=== PATIENT | male | born 1960 | race Caucasian/White ===

== ENCOUNTER 2023-07-20 16:53 | Inpatient (IN) | payer OTHER, SELFPAY ==
[2023-07-20 17:59] LABS: Absolute Lymphocytes (CBC) 1.1 K/uL (0.7-4.9); Hematocrit 40.2 % (39.6-49.0); Lymphocytes % 9.4 % (15.3-44.8); MCV 84.9 fL (80-100); MPV 6.9 fL (7.6-11.3); Platelets 328 thou/uL (152-406); RBC Red Blood Cell Count 4.73 M/uL (4.33-5.43)
[2023-07-20 18:02] LABS: Protime INR 1.24
[2023-07-20 18:09] LABS: Albumin 2.5 g/dL (3.4-5.0); Bilirubin Total 0.5 mg/dL (0.2-1.0); Protein, Total 7.7 g/dL (6.4-8.2)
--- NOTE | 2023-07-20 18:26 | RAD REPORT ---
EXAM DESCRIPTION: RAD - Foot Right 3 View - 07/20/2023 5:42 pm CLINICAL HISTORY: Swelling;Pain COMPARISON: No comparisons TECHNIQUE: Right foot, 3 views. FINDINGS: Osseous destructive changes and lucency along the base of the second digit proximal phalan x, with adjacent soft tissue swelling and gas. Similar although subtle osseous lucencies involve the head of the second metatarsal as well. Lateral subluxation of the base of the proximal phalanx relati ve to the head of the second metatarsal. Dislocation or periosteal reaction. Moderate degenerative changes along the mid and hindfoot. Moderate calcaneal spur. No air or foreign body in the soft tissues. IMPRESSION: Osseous destructive changes involving the base of the second digit proximal phalanx and head of the second metatarsal, with lateral subluxation, concerning for osteomyelitis.
--- NOTE | 2023-07-20 18:38 | ER ---
Nurse's Notes [facility] Name: Horace Coates Age: 62 yrs Sex: Male : 1960 Arrival Date: 07/20/2023 Time: 16:53 Bed 17 Private MD: Beena Woods Diagnosis: Osteomyelitis, unspecified;Cellulitis of right lower limb Presentation: 07/20 17:05 Chief complaint: Patient states: Infection to R foot for at least a month. Wound isn't ll1 healing after antibiotics. Slight brown drainage. No fever. Coronavirus screen: Client denies travel out of the [place] in the last 14 days. At this time, the client does not indicate any symptoms associated with coronavirus-19. Ebola Screen: Patient denies travel to an Ebola-affected area in the 21 days before illness onset. Initial Sepsis Screen: Does the patient meet any 2 criteria? No. Patient's initial sepsis screen is negative. Does the patient have a suspected source of infection? Yes: Skin breakdown/wound. Risk Assessment: Do you want to hurt yourself or someone else? Patient reports no desire to harm self or others. Onset of symptoms was June 19, 2023. 17:05 Method Of Arrival: Ambulatory ll1 17:05 Acuity: SERGIO 2 ll1 Historical: - Allergies: 17:04 pine nuts; ll1 - PMHx: 17:04 Hypertensive disorder; Diabetes mellitus; neuropathy; ll1 - PSHx: 17:04 knee SX; foot SX; ll1 - Immunization history:: Adult Immunizations up to date. - Social history:: Smoking status: Patient reports the use of cigarette tobacco products, smokes one pack cigarettes per day. - Family history:: not pertinent. - Hospitalizations: : No recent hospitalization is reported. Screenin:48 [facility] ED Fall Risk Assessment (Adult) History of falling in the last 3 months, mb9 including since admission Yes- single mechanical fall (1 pt) Confusion or Disorientation No (0 pts) Intoxicated or Sedated No (0 pts) Impaired Gait Yes (1 pt) Mobility Assist Device Used No (0 pt) Altered Elimination No (0 pt) Score/Fall Risk Level 0 - 2 = Low Risk Oriented to surroundings, Maintained a safe environment, Educated pt \T\ family on fall prevention, incl call for assistance when getting out of bed. Abuse screen: Denies threats or abuse. Nutritional screening: No deficits noted. Tuberculosis screening: No symptoms or risk factors identified. Assessment: 17:51 General: Appears in no apparent distress. Behavior is calm, cooperative. Pain: Denies mb9 pain. Neuro: Andujar Agitation-Sedation Scale (RASS): 0 - Alert and Calm Level of Consciousness is awake, alert, obeys commands, Oriented to person, place, time, situation, Appropriate for age. Cardiovascular: Heart tones S1 S2 present Patient's skin is warm and dry. Respiratory: Airway is patent Respiratory effort is even, unlabored, Respiratory pattern is regular, symmetrical, Breath sounds are clear bilaterally. GI: Abdomen is round non-distended, Bowel sounds present X 4 quads. Abd is soft and non tender X 4 quads. : No signs and/or symptoms were reported regarding the genitourinary system. EENT: No signs and/or symptoms were reported regarding the EENT system. Derm: Wound noted right heel Wound is erythema and purulent drainage noted. Musculoskeletal: Range of motion: intact in all extremities. 19:00 General: Appears in no apparent distress. comfortable, Behavior is calm, cooperative. jw7 19:00 Pain: Denies pain. Neuro: Andujar Agitation-Sedation Scale (RASS): 0 - Alert and Calm jw7 Level of Consciousness is awake, alert, obeys commands, Oriented to person, place, time, situation. Cardiovascular: Heart tones S1 S2 present Capillary refill < 3 seconds Patient's skin is warm and dry. Respiratory: Airway is patent Trachea midline Respiratory effort is even, unlabored, Respiratory pattern is regular, symmetrical. GI: Abdomen is round non-distended, Bowel sounds present X 4 quads. Abd is soft and non tender X 4 quads. : No deficits noted. No signs and/or symptoms were reported regarding the genitourinary system. EENT: No deficits noted. No signs and/or symptoms were reported regarding the EENT system. Derm: Skin is healthy with good turgor, Skin is dry, Skin is normal, Skin temperature is warm Wound noted right foot Wound is erythema with purulent drainage. Musculoskeletal: Circulation, motion, and sensation intact. Range of motion: intact in all extremities. 20:00 Reassessment: Patient appears in no apparent distress at this time. No changes from jw7 previously documented assessment. Patient and/or family updated on plan of care and expected duration. Pain level reassessed. Patient is alert, oriented x 3, equal unlabored respirations, skin warm/dry/pink. 21:00 Reassessment: Patient appears in no apparent distress at this time. No changes from jw7 previously documented assessment. Patient and/or family updated on plan of care and expected duration. Pain level reassessed. Patient is alert, oriented x 3, equal unlabored respirations, skin warm/dry/pink. 22:00 Reassessment: Patient appears in no apparent distress at this time. No changes from jw7 previously documented assessment. Patient and/or family updated on plan of care and expected duration. Pain level reassessed. Patient is alert, oriented x 3, equal unlabored respirations, skin warm/dry/pink. 23:00 Reassessment: Patient appears in no apparent distress at this time. No changes from jw7 previously documented assessment. Patient and/or family updated on plan of care and expected duration. Pain level reassessed. Patient is alert, oriented x 3, equal unlabored respirations, skin warm/dry/pink. Vital Signs: 17:05 BP 140 / 96; Pulse 121; Resp 17; Temp 98.6; Pulse Ox 96% ; Weight 97.07 kg; Height 5 ll1 ft. 7 in. ; Pain 7/10; 17:52 BP 132 / 75; Pulse 113; Resp 14; Pulse Ox 97% on R/A; mb9 19:07 BP 136 / 86; Pulse 104; Resp 18; Pulse Ox 100% on R/A; mb9 19:30 BP 140 / 81; Pulse 107; Resp 20 S; Pulse Ox 98% on R/A; jw7 20:30 BP 135 / 84; Pulse 103; Resp 25 S; Pulse Ox 97% on R/A; jw7 22:00 BP 127 / 87; Pulse 97; Resp 27 S; Pulse Ox 98% on R/A; jw7 23:30 BP 142 / 89; Pulse 96; Resp 26 S; Pulse Ox 97% on R/A; jw7 17:05 Body Mass Index 33.52 (97.07 kg, 170.18 cm) ll1 17:05 Pain Scale: Adult ll1 ED Course: 16:55 Patient arrived in ED. rg4 16:56 Beena Woods DO is Private Physician. rg4 16:56 Quique Aguilar MD is Attending Physician. rn 17:07 Triage completed. ll1 17:07 Arm band placed on Patient placed in an exam room, on a stretcher. ll1 17:21 Freya Diallo, RN is Primary Nurse. mb9 17:44 XRAY Foot RIGHT 3 View In Process Unspecified. EDMS 17:47 No provider procedures requiring assistance completed. Inserted saline lock: 20 gauge mb9 in right antecubital area, using aseptic technique. 17:48 Placed in gown. Bed in low position. Call light in reach. Side rails up X 1. Client mb9 placed on continuous cardiac and pulse oximetry monitoring. NIBP monitoring applied. monitoring tech on. 17:48 EKG done, by ED staff, reviewed by Quique Aguilar MD. mb9 17:53 Blood Culture Adult (2) Sent. mb9 17:53 CBC with Diff Sent. mb9 17:53 CMP Sent. mb9 17:53 Protime (+inr) Sent. mb9 17:53 Ptt, Activated Sent. mb9 18:37 Oscar Esteban MD is Hospitalizing Provider. rn 18:38 Wound Culture Sent. mb9 19:08 Report given to KRISTOPHER Peña. mb9 07/21 00:11 Provided Education on: need for admit. jw7 00:11 Patient admitted, IV remains in place. jw7 Administered Medications: 07/20 19:06 Drug: Piperacillin-Tazobactam IVPB 3.375 grams IVPB once over 60 mins; (mix in NS 100 mb9 mL) Route: IVPB; Infused Over: 60 mins; Site: right antecubital; 07/21 00:19 Follow up: Response: No adverse reaction; IV Status: Completed infusion; IV Intake: jw7 100ml 07/20 20:10 Drug: vancoMYCIN IVPB 1 grams IVPB once over 2 hrs Route: IVPB; Infused Over: 2 hrs; jw7 Site: right antecubital; 07/21 00:19 Follow up: Response: No adverse reaction; IV Status: Completed infusion; IV Intake: jw7 250ml Medication: 07/20 17:48 VIS not applicable for this client. mb9 Intake: 07/21 00:19 IV: 100ml; Total: 100ml. jw7 00:19 IV: 250ml; Total: 350ml. jw7 Outcome: 07/20 18:38 Decision to Hospitalize by Provider. rn 07/21 00:11 Admitted to Med/surg accompanied by tech, via wheelchair, room 204, jw7 Condition: stable Instructed on the need for admit, Demonstrated understanding of instructions, 01:03 Patient left the ED. jw7 Signatures: Dispatcher [employer] EDMS Quique Aguilar MD MD rn Garcia, Rubi rg4 Rafa Brody RN RN 1 Mariana Cuba RN RN jw7 Freya Diallo RN RN mb9 Corrections: (The following items were deleted from the chart) 07/20 17:05 17:04 PMHx: Headache; ll1 ll1 17:59 17:52 Pulse 113bpm; Resp 14bpm; Pulse Ox 97% RA; mb9 mb9
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
[2023-07-20] MEDS ORDERED: NA CHLORIDE 0.9% 100 ML ONE (18:40)
[2023-07-20] MEDS ORDERED: NA CHLORIDE 0.9% 250 ML ONE ×2 (18:40→22:14)
[2023-07-20] MEDS ORDERED: VANCOMYCIN 1 GM/VIAL ONE ×2 (18:40→22:13)
[2023-07-20] MEDS ORDERED: PIPERACIL/TAZO 3.375 GM VIAL IV ONE (18:41)
[2023-07-20] MEDS ORDERED: ONDANSETRON 4 MG/2 ML VIAL IV PRN (19:51)
[2023-07-20] MEDS ORDERED: MORPHINE 4 MG/ML SYR IV PRN (19:51)
[2023-07-20] MEDS ORDERED: GLUCAGON 1 MG/VIAL IM PRN (19:54)
[2023-07-20] MEDS ORDERED: D50W 25 GM/50 ML SYRINGE IV PRN (19:54)
[2023-07-20] MEDS ORDERED: VANCOMYCIN 1 GM in NA CHLORIDE 0.9% 250 ML IVPB SCH (20:00)
[2023-07-20] MEDS ORDERED: D10W 125 ML IV PRN (20:27)
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
[2023-07-20] MEDS ORDERED: NACHLORIDE 0.45% 1,000 ML IV SCH (22:00)
[2023-07-20] MEDS ORDERED: INSULIN REGULAR (HUMAN) 100 UNIT/ML ONE (22:13)
[2023-07-20] MEDS ORDERED: METFORMIN HCL 500 MG TAB ONE (22:13)
[2023-07-20] MEDS: INSULIN REGULAR (HUMAN) 100 UNIT/ML SQ SCH (22:20)
[2023-07-20] MEDS: VANCOMYCIN 750 MG in NA CHLORIDE 0.9% 150 ML IVPB ONE (22:37)
[2023-07-20] MEDS: METFORMIN HCL 500 MG TAB PO SCH (22:38)
[2023-07-20] MEDS: NA CHLORIDE 0.9% 1,000 ML IV SCH (23:50)
[2023-07-21] MEDS: PIPER TAZO 4.5 GM in NA CHLORIDE 0.9% 100 ML IV SCH (01:00)
[2023-07-21 02:29] VITALS: BMI 33.9
[2023-07-21 06:43] LABS: Hematocrit 38.3 % (39.6-49.0); Lymphocytes % 11.5 % (15.3-44.8); MCV 84.6 fL (80-100); MPV 6.7 fL (7.6-11.3); Platelets 305 thou/uL (152-406); RBC Red Blood Cell Count 4.53 M/uL (4.33-5.43)
[2023-07-21 06:57] LABS: Potassium 3.6 mEq/L (3.5-5.1)
[2023-07-21] MEDS: ENOXAPARIN 40 MG/0.4 ML SQ SCH (08:21)
[2023-07-21] MEDS: VANCOMYCIN 1.75 GM in NA CHLORIDE 0.9% 500 ML IVPB SCH (12:33)
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
[2023-07-21] MEDS ORDERED: VANCOMYCIN 1.75 GM in NA CHLORIDE 0.9% 500 ML IVPB SCH (16:00)
[2023-07-21] MEDS: INSULIN GLARGINE 100 UNIT/ML SQ SCH (16:30)
[2023-07-21] MEDS: NICOTINE 21 MG/PAT TD SCH (17:19)
[2023-07-22 07:00] LABS: Hematocrit 38.1 % (39.6-49.0); Lymphocytes % 12.3 % (15.3-44.8); MCV 85.1 fL (80-100); MPV 6.4 fL (7.6-11.3); Platelets 324 thou/uL (152-406); RBC Red Blood Cell Count 4.48 M/uL (4.33-5.43)
[2023-07-22 07:20] LABS: Potassium 3.8 mEq/L (3.5-5.1)
[2023-07-22] MEDS: NA CHLORIDE 0.9% 1,000 ML ONE (14:54)
[2023-07-22] MEDS: SUCCINYLCHOLINE 20 MG/ML (10 ML) IV ONE (14:55)
[2023-07-22] MEDS ORDERED: propofoL 200 MG/20 ML VIAL IV ONE (14:58)
[2023-07-22] MEDS ORDERED: MIDAZOLAM HCL 2 MG/2 ML INJ ONE (14:58)
[2023-07-22] MEDS ORDERED: FENTANYL CITR 100 MCG/2 ML ONE (14:58)
--- NOTE | 2023-07-22 15:00 | P.PN ---
Date of Service: 07/22/23 S: Patient has had time an opportunity to think about his options. Has elected to have surgery. We discussed once again surgical options. O: Dressing was not taken down A: This patient has osteo myelitis of the second metatarsal joint of his right foot. There is a penetrating ulcer coming from the sole all the way down to the actual bone itself and it appears all to be fractures and disruption of the joint capsule itself with air in the tissue. P: I have discussed at length with the patient the risks of surgery, the potenti al of trying to heal this with antibiotics and just localized wound care. First of all the bone will most likely have to be removed. The likelihood of any healing spontaneously are low or if it does heal with quick recurrence. He understands and has decided for amputation of the second toe. I will taken the operating room to explore this area of his toe while he is asleep. We will check for infection, tissue viability, possible closures. And will decide accordingly. He does understands, but anxious patient's having an amputation of his toe. He understands all this and wants to proceed. The possibility also of this nonhealing were explained the need for further surgeries were discussed. He also lives by himself, and has limited resources.
--- NOTE | 2023-07-22 16:46 | P.OP ---
Preoperative diagnosis: Osteomyelitis of the right foot with gangrene of the second toe Postoperative diagnosis: The same Primary procedure: Exploration of chronic diabetic wound of the right foot Secondary procedure: Amputation of the second toe Other procedure(s): Transection of the second metatarsal and wound approximation Anesthesia: General Estimated blood loss: Since NCC Specimen: Toe necrotic necrotic debris send Operative Technique: Patient brought the operating room placed supine on the table. After induction of adequate general anesthesia, the right foot was then prepped with a Betadine solution, draped in the usual aseptic manner. The wound was carefully inspected. We could see that there was radha pus coming out of the wound on the sole of the foot. This is located approximately fingers breath from the toe crease line. This wound after aspirating at all. Material actually communicates with the dorsum of the foot. This after making a skin incision to widen and to join these 2 areas showed that there was chronic necrotic granulation tissue as well as well callused skin in this area. At the depth of this wound can feel the crunchiness of the metatarsal phalangeal joint. There is wound after having done a standard racquet incision around the second toe, revealed the head of the metatarsal. This tissue actually looks good, and after removing the head of the metatarsal, we turned our attention back to the wound base itself. There was a lot of necrotic gangrenous tissue in this area in addition to purulent material and chronic granulation tissue. This was sharply debrided with a cutting blade and electrocautery. Having obtained a dry wound bed we were able to approximate loosely the skin of the sole of the foot using 2 mattress stitches with red rubber catheter to protect the skin edges. The wound on the dorsum was inspected there is a somewhat of a tissue gap at the skin level however the underlying tissue came together well. This area was packed over with iodoform gauze. Sterile dressings were then applied and he was placed into an orthopedic boot appliance. At the end of the procedure he was in a stable condition was sent to the recovery room. Transferred to: Recovery Room Condition: Good
[2023-07-22] MEDS: VANCOMYCIN 1.75 GM in NA CHLORIDE 0.9% 500 ML IVPB SCH (17:58)
[2023-07-22] MEDS: Oxycodone HCl/Acetaminophen 5/325 MG TAB PO PRN (18:04)
[2023-07-23 06:42] LABS: Absolute Lymphocytes (CBC) 1.3 K/uL (0.7-4.9); Lymphocytes % 15.2 % (15.3-44.8); MCV 85.4 fL (80-100); MPV 6.5 fL (7.6-11.3); Platelets 348 thou/uL (152-406); RBC Red Blood Cell Count 4.22 M/uL (4.33-5.43)
[2023-07-23 07:00] LABS: Potassium 4.5 mEq/L (3.5-5.1)
--- NOTE | 2023-07-23 07:40 | P.PN ---
Subjective Date of Service: 07/23/23 Chief Complaint: Necrotic right foot infection/s/p right second toe amputation Subjective: No C/O voiced, Tolerating diet, Doing well Review of Systems 10-point ROS is otherwise unremarkable General: Unremarkable Eyes: Unremarkable ENT: Unremarkable Respiratory: Unremarkable Cardiovascular: Unremarkable Gastrointestinal: Unremarkable Genitourinary: Other (post OR voiding this am without difficulty) Musculoskeletal: As per HPI Integumentary: Unremarkable Neurological: Unremarkable Lymphatics: Unremarkable Physical Examination - Vital Signs Temperature: 97.8 F Blood Pressure: 120/76 Pulse: 82 Respirations: 16 Pulse Ox (%): 98 - Physical Exam General: Alert, In no apparent distress, Oriented x3 HEENT: Atraumatic, Normocephalic, PERRLA Neck: Supple Respiratory: Clear to auscultation bilaterally, Normal air movement Cardiovascular: No edema, Normal pulses, Regular rate/rhythm Capillary refill: <2 Seconds Gastrointestinal: Normal bowel sounds, Soft and benign Musculoskeletal: Other (post op dressing to right foot, + amputation of 2nd toe) Neurological: Normal speech, Normal tone Lymphatics: No axilla or inguinal lymphadenopathy Urinary: Other (voiding) External genitalia: Deferred Rectal: Deferred - Studies Microbiology Data (last 24 hrs): 07/20/23 18:33 Wound - Right Foot Gram Stain - Final Assessment And Plan - Plan Reason for admission: Necrotic right foot infection History of Present Illness: Patient is 62 years of age he has severe peripheral neuropathy from diabetes apparently he burned his right foot for months ago he has been having some treatment is pain got worse on the right for developed more swelling redness he does have a hole in his ball of his feet he is seeing his primary care as an outpatient was treated with antibiotic Allergies pine nuts Allergy (Uncoded 02/08/15 15:12) Unknown - Past Medical/Surgical History -: Diabetes -: Peripheral neuropathy - Social History Smoking Status: Current every day smoker Counseled patient to stop smoking for: less than 10 minutes Smoking therapy provided: No Alcohol use: No CD- Drugs: No Caffeine use: No Assessment and Plan - Problems (Diagnosis) (1) Diabetic infection of right foot Current Visit: Yes Status: Acute Plan: Patient is 62 years of age with severe peripheral neuropathy diabetes hypertension admitted with diabetic necrotic foot infection apparently had a burn any months ago he has severe peripheral neuropathy pain got a little worse. He takes metformin at home sugars are very high I suspect he has uncontrolled diabetes admitted treated with Zosyn and vancomycin Check his A1c start patient on insulin blood sugar is very elevated at 377 mildly elevated alkaline phosphatase also hyponatremic (trended up 136 this am) start patient on normal saline white count is mildly elevated (trended down - 07/23/23 12.3) pain control patient's peripheral circulation will also need to be evaluated Diabetic education transition to po abx at direction of Dr. Chris (2) Osteomyelitis of second toe of right foot Current Visit: Yes Status: Acute Plan: Osseous destructive changes involving the base of the second digit proximal phalanx and head of the second metatarsal, with lateral subluxation, concerning for osteomy elitis. Continue IV abx. Dr. Chris took pt to OR yesterday and 2nd toe amputation completed. Follow up with Dr. Chris for wound management - Advance Directives Does patient have a Living Will: No Does patient have a Durable POA for Healthcare: No
--- NOTE | 2023-07-23 09:09 | P.CNS ---
Date of Consult: 07/23/23 Reason for Consult: osteomyelitis right toe Chief Complaint: Necrotic right foot infection/s/p right second toe amputation History of Present Illness: Patient is a 62 yo male with a medical history of uncontrolled diabetes mellitus type II, diabetic neuropathy who presented to the ED with complaints of worsening right foot diabetic ulcer. Patient was found to have osteomyelitis; underwent amputation of right second toe on 07/[address] Chris. Infectious d isease was consulted. Allergies pine nuts Allergy (Severe, Uncoded 07/21/23 01:04) Anaphylaxis Home medications list reviewed: Yes Home Medications: Atorvastatin Calcium 10 mg PO BEDTIME 07/21/23 Duloxetine HCl 30 mg PO DAILY 07/21/23 Duloxetine HCl 60 mg PO DAILY 07/21/23 Glimepiride 1 mg PO BID 07/21/23 Losartan Potassium 50 mg PO DAILY 07/21/23 Metformin HCl 500 mg PO DAILY 07/21/23 - Past Medical/Surgical History Diabetic: Yes -: Diabetes -: Peripheral neuropathy -: sleep apnea -: knee surgery -: right foot sx - Social History Smoking Status: Current every day smoker Alcohol use: No CD- Drugs: No Caffeine use: Yes Place of Residence: Home Review of Systems 10-point ROS is otherwise unremarkable Integumentary: As per HPI Physical Examination Temp Pulse Resp BP Pulse Ox 97.8 F 82 16 120/76 98 07/23/23 07:48 07/23/23 07:48 07/23/23 07:48 07/23/23 07:48 07/23/23 07:48 General: Alert, In no apparent distress HEENT: Atraumatic, Normocephalic Respiratory: Clear to auscultation bilaterally, Normal air movement Cardiovascular: Regular rate/rhythm, Edema (right foot) Gastrointestinal: Normal bowel sounds, Soft and benign, No tenderness Musculoskeletal: Other (s/p amputation right second toe) Integumentary: Other (right foot dressing clean dry and intact) Laboratory Data - Reviewed Microbiology Data - Reviewed Imagings Data: - Reviewed Conclusions/Impression: Problem list Osteomyelitis right second toe Diabetes Mellitus type II Chronic diabetic foot ulcer Diabetic neuropathy Osteomyelitis right second toe with gangrene now s/p amputation 07/22 - XR right foot 07/20: "Osseous destructive changes involving the base of the second digit proximal phalanx and head of the second metatarsal, with lateral subluxation, concerning for osteomyelitis" - s/p Amputation of the second toe and Transection of the second metatarsal and wound approximation on 07/[address] Chris - On Zosyn and Vancomycin - Wound cultures 07/20: Escherichia coli ESBL and proteus vulgaris Leukocytosis resolved. Afebrile Recommendations - Started on Meropenem 07/23 following culture results with multi-drug resistant E.coli ESBL and proteus vulgaris - Zosyn discontinued - If unclear margins obtained/portions of infected bone remaining, recommend continuing with antibiotic therapy for 6 weeks duration (07/23-09/02). Currently on meropenem. Alternative: Ertapenem 1g IV q24h. - Wound care per surgeon - Strict blood glucose control . Diabetic education. HgbA1c = 12.5 Case discussed with Hong Perez
[2023-07-23] MEDS: Meropenem 1,000 MG in NA CHLORIDE 0.9% 100 ML IV SCH ×2 (10:27→17:36)
[2023-07-23] MEDS: Mupirocin NASAL 2 APPL/1 GM TUBE NAS SCH (10:27)
--- NOTE | 2023-07-23 14:37 | EKG ---
Test Date: 2023-07-20 Test Time: 17:32:02 Draw Frame Operator: MB MEASUREMENT RESULTS: Intervals: Rate: 112 KS: 142 QRSD: 100 QT: 346 QTc: 472 [place]: P: 66 KS: 142 QRS: 60 T: 48 INTERPRETIVE STATEMENTS: Sinus tachycardia Otherwise normal ECG No previous ECG available for comparison Electronically Signed On 07-23-23 14:29:23 [employer] by Edward Alvarez
--- NOTE | 2023-07-23 21:34 | RAD REPORT ---
EXAM DESCRIPTION: RAD - Chest Single View - 07/23/2023 9:16 pm CLINICAL HISTORY: Device placement PICC line placement . IMPRESSION: PICC line with its tip in the mid superior vena cava
--- NOTE | 2023-07-24 15:01 | P.PN ---
Subjective Date of Service: 07/24/23 Chief Complaint: Necrotic right foot infection/s/p right second toe amputation Subjective: No new changes Review of Systems 10-point ROS is otherwise unremarkable General: Unremarkable Eyes: Unremarkable ENT: Unremarkable Respiratory: Unremarkable Cardiovascular: Unremarkable Gastrointestinal: Unremarkable Genitourinary: Unremarkable Musculoskeletal: As per HPI Integumentary: Unremarkable Neurological: Unremarkable Lymphatics: Unremarkable Physical Examination - Vital Signs Temperature: 97.1 F Blood Pressure: 134/84 Pulse: 77 Respirations: 18 Pulse Ox (%): 98 - Physical Exam General: Alert, In no apparent distress, Oriented x3 HEENT: Atraumatic, Normocephalic, PERRLA Neck: Supple, 2+ carotid pulse no bruit Respiratory: Clear to auscultation bilaterally, Normal air movement Cardiovascular: No edema, Normal pulses, Regular rate/rhythm Capillary refill: <2 Seconds Gastrointestinal: Normal bowel sounds, Soft and benign Musculoskeletal: Other (right second toe amputation, dressing dry, intact) Integumentary: No rashes, Other (PICC placed to left upper arm) Neurological: Normal speech, Normal tone - Studies Microbiology Data (last 24 hrs): 07/20/23 18:33 Wound - Right Foot Gram Stain - Final 07/20/23 18:33 Wound - Right Foot Culture & Sensitivity - Final Escherichia Coli Esbl Proteus Vulgaris Assessment And Plan - Plan Reason for admission: Necrotic right foot infection History of Present Illness: Patient is 62 years of age he has severe peripheral neuropathy from diabetes apparently he burned his right foot for months ago he has been having some treatment is pain got worse on the right for developed more swelling redness he does have a hole in his ball of his feet he is seeing his primary care as an outpatient was treated with antibiotic Allergies pine nuts Allergy (Uncoded 02/08/15 15:12) Unknown - Past Medical/Surgical History -: Diabetes -: Peripheral neuropathy - Social History Smoking Status: Current every day smoker Counseled patient to stop smoking for: less than 10 minutes Smoking therapy provided: No Alcohol use: No CD- Drugs: No Caffeine use: No Assessment and Plan - Problems (Diagnosis) (1) Diabetic infection of right foot Current Visit: Yes Status: Acute Plan: s/p right second toe amputation Diabetic education transition to po abx at direction of Dr. Chris - cultures + for ESBL and P. vulgaris, resistant to po abx. PICC placed to left upper arm - arranging for MEROPENEM IVPB x 6 week course (2) Osteomyelitis of second toe of right foot Current Visit: Yes Status: Acute Plan: Osseous destructive changes involving the base of the second digit proximal phalanx and head of the second metatarsal, with lateral subluxation, concerning for osteomyelitis. Continue IV abx. 2nd toe amputation completed. Follow up with Dr. Chris for wound management - Advance Directives Does patient have a Living Will: No Does patient have a Durable POA for Healthcare: No Discharge Plan: Home Plan to discharge in: 24 Hours - Code Status/Comfort Care Code Status Assessed: Yes (FULL)
--- NOTE | 2023-07-24 15:03 | P.PN ---
Date of Service: 07/24/23 S: Patient has no specific complaints today pain is well-controlled. O: Dressing is taken down, wound looks clean and viable. Skin edges look good, minimal erythema. A: Surgically stable status post amputation of the second toe and distal second metatarsal P: Patient was instructed in wound care. He is going to be discharged. He will be maintained on antibiotics for 3 to 6 weeks per infectious disease. He will follow-up with our wound care center. He has been instructed on wound care which includes removing the dressing, wash the area with soap and water, rinse in the area with Vashe and applying a new dressing. He understands. He also has been told how to contact us in case he has any questions or problems.
--- NOTE | 2023-07-24 16:45 | P.DS ---
Admission Date: 07/20/23 Discharge Date: 07/25/23 Disposition: ROUTINE DISCHARGE Comment: with information for supervisor intermediates (3-6 week) IV therapy Discharge Condition: GOOD Reason for Admission: Necrotic right foot infection/s/p right second toe amputation Consultations: Dr. Chris, Wound Care Brief History of Present Illness: Patient is 62 years of age he has severe peripheral neuropathy from diabetes: apparently he burned his right foot months ago. He has been having some treatment but the pain got worse on the right. It has developed more swelling, redness, and he does have a hole in his ball of his foot. He has seen his primary care provider, as an outpatient and was treated with po antibiotics. He was admitted for consultation with Dr. Chris for possible right second toe amputation and surgical debridement of osteomyelitis. Hospital Course: Mr. Coates underwent an amputation of the right second toe and surgical debridement of the metatarsal head. The wound was cultured and grew ESBL and P. vulgaris. He received IV antibiotics as an inpatient awaiting cultures. Yesterday a PICC line was placed in the left upper arm for outpatient IV antibiotics of Merrem for 3 to 6 weeks. Mr. Coates will follow-up with Dr. Chris in the wound care center every Sunday. Discharge planning will set up IV antibiotics and weekly CBC, Chem-7 blood draws. Mr. Coates voices understanding and agreement of discharge plan. Vital Signs/Physical Exam: Temp Pulse Resp BP Pulse Ox 97.1 F 77 18 134/84 98 07/24/23 15:00 07/24/23 15:07/24/23 15:07/24/23 15:07/24/23 15:00 General: Alert, In no apparent distress, Oriented x3 HEENT: Atraumatic, Normocephalic, PERRLA Neck: Supple, 2+ carotid pulse no bruit Respiratory: Clear to auscultation bilaterally, Normal air movement Cardiovascular: No edema, Normal pulses, Regular rate/rhythm Capillary refill: <2 Seconds Gastrointestinal: Normal bowel sounds, Soft and benign Musculoskeletal: No clubbing, Other (right second toe amputation.) Integumentary: Other (wound evaluated per Dr. Chris, wound edges healthy, wound care will be set for every Sunday) Neurological: Normal speech, Normal tone Lymphatics: No axilla or inguinal lymphadenopathy External genitalia: Deferred Rectal: Deferred Laboratory Data at Discharge: WBC 8.80 thou/uL (4.3-10.9) 07/23/23 06:25 Hgb 12.3 g/dL (13.6-17.9) L 07/23/23 06:25 Hct 36.0 % (39.6-49.0) L 07/23/23 06:25 Plt Count 348 thou/uL (152-406) 07/23/23 06:25 PT 13.6 SECONDS (9.5-12.5) H 07/20/23 17:42 INR 1.24 07/20/23 17:42 APTT 33.1 SECONDS (24.3-36.9) 07/20/23 17:42 Sodium 136 mEq/L (136-145) 07/23/23 06:25 Potassium 4.5 mEq/L (3.5-5.1) D 07/23/23 06:25 BUN 6 mg/dL (7-18) L 07/23/23 06:25 Creatinine 0.91 mg/dL (0.70-1.30) 07/23/23 06:25 Glucose 212 mg/dL (74-106) H 07/23/23 06:25 Total Bilirubin 0.5 mg/dL (0.2-1.0) 07/20/23 17:42 AST 6 U/L (15-37) L 07/20/23 17:42 ALT 12 U/L (16-61) L 07/20/23 17:42 Alkaline Phosphatase 141 U/L (45-117) H 07/20/23 17:42 Triglycerides 97 mg/dL (<150) 07/21/23 06:15 Cholesterol 166 mg/dL (<200) 07/21/23 06:15 HDL Cholesterol 40 mg/dL (40-60) 07/21/23 06:15 Cholesterol/HDL Ratio 4.15 07/21/23 06:15 Home Medications: Atorvastatin Calcium 10 mg PO BEDTIME 07/21/23 Duloxetine HCl 30 mg PO DAILY 07/21/23 Glimepiride 1 mg PO BID 07/21/23 Losartan Potassium 50 mg PO DAILY 07/21/23 Metformin HCl 500 mg PO DAILY 07/21/23 Meropenem-0.9% Sodium Chloride [Meropenem-0.9% NaCl 1 Gram/50] 1 gm IV DAILY 42 Days #50 ml 07/24/23 Mupirocin Calcium [Bactroban Nasal*] 1 appl ANT BID #30 gm 07/24/23 New Medications: Mupirocin Calcium [Bactroban Nasal*] 1 appl ANT BID #30 gm Meropenem-0.9% Sodium Chloride [Meropenem-0.9% NaCl 1 Gram/50] 1 gm IV DAILY 42 Days #50 ml Diet: ADA Activity: Ad oscar Followup: Beena Woods DO [Primary Care Provider] - Roverto Chris MD [ACTIVE - CAN ADMIT] -
[2023-07-25 07:58] VITALS: O2SAT 96
[2023-07-25 13:27] VITALS: BP 149/81; TEMP 97.8
== END 2023-07-25 17:23 | disposition home or self-care (01) | DRG 617 ==
LOC: ER 16:53 → ERHOLD 19:50 → 2ND 07-21 00:17
PROVIDERS: ADMIT Internal Medicine Sleep Medicine; ATTEND Hospitalist
PROC: 0Y6R0Z0 Detachment at Right 2nd Toe, Complete, Open Approach (ICD-10-PCS; principal; 2023-07-22 15:00)
PROC: 02HV33Z Insertion of Infusion Device into Superior Vena Cava, Percutaneous Approach (ICD-10-PCS; 2023-07-23)
DX: E11.69 Type 2 diabetes mellitus with other specified complication (principal); E11.52 Type 2 diabetes mellitus with diabetic peripheral angiopathy with gangrene; E87.1 Hypo-osmolality and hyponatremia; L03.115 Cellulitis of right lower limb; M86.171 Other acute osteomyelitis, right ankle and foot; Z16.12 Extended spectrum beta lactamase (ESBL) resistance; Z16.20 Resistance to unspecified antibiotic; E11.42 Type 2 diabetes mellitus with diabetic polyneuropathy; E11.621 Type 2 diabetes mellitus with foot ulcer; L97.519 Non-pressure chronic ulcer of other part of right foot with unspecified severity; I10 Essential (primary) hypertension; F17.210 Nicotine dependence, cigarettes, uncomplicated; B96.20 Unspecified Escherichia coli [E. coli] as the cause of diseases classified elsewhere; Z91.018 Allergy to other foods; Z79.84 Long term (current) use of oral hypoglycemic drugs; Z79.899 Other long term (current) drug therapy
CPT/HCPCS: 36415; 36569; 71045; 80048; 80053; 80061; 80202; 82947; 83036; 83605; 85025; 85610; 85730; 87040; 87070; 87077; 87186; 87205; 88305; 88311; 93005; 96365; 96366; 99285; J1650; J1815; J2185; J2250; J2543; J2704; J3010; J7030; J7040; J7050